=== PATIENT | female | born 2000 | race African-American/Black ===

== ENCOUNTER 2024-11-11 19:42 | Emergency (ER) | payer OTHER ==
[~2024-11-11] VITALS: Ht 170.2 cm; Wt 86.2 kg
[2024-11-11 20:19] VITALS: BP 175/98; TEMP 98.5
[2024-11-11 20:55] VITALS: O2SAT 97
== END 2024-11-11 20:56 | disposition home or self-care (01) ==
LOC: ER 19:52
DX: R05.9 Cough, unspecified (principal); B34.9 Viral infection, unspecified
CPT/HCPCS: 71045-TC